=== PATIENT | male | born 1955 | race Caucasian/White ===

== ENCOUNTER 2018-11-18 13:45 | Inpatient (IN) | payer OTHER ==
[2018-11-18] MEDS: ONDANSETRON 4 MG INJ IV ×2 (13:53→14:00)
[2018-11-18] MEDS: morphine 2 MG INJ IV ×2 (13:53→14:00)
[2018-11-18 13:54] LABS: ADD MAN DIFF? NO
[2018-11-18] MEDS: SOD CHLORIDE 0.9% 1,000 ML IV ×2 (13:54→16:07)
[2018-11-18 13:57] LABS: BASOPHILS % 0.3 % (0.0-2.0); EOSINOPHILS % 0.3 % (0.0-7.0); HEMOGLOBIN 14.2 g/dl (14.0-18.0); LYMPHOCYTES % 18.4 % (15.0-51.0); MEAN CORPUSCULAR HEMOGLOBIN 30.2 pg (29.0-33.0); MEAN CORPUSCULAR VOLUME 91.5 fl (82.0-101.0); MEAN PLATELET VOLUME 10.8 fl (7.4-10.4); MONOCYTE # 0.7 10^3/ul (0.3-0.9); NEUTROPHIL # 8.1 10^3/ul (1.6-7.5); NEUTROPHILS % 74.5 % (39.0-77.0); PLATELET COUNT 147 10^3/UL (140-415); RED CELL DISTRIBUTION WIDTH 14.6 % (11.5-14.5)
[2018-11-18 13:57] LABS: WHITE BLOOD COUNT 10.9 10^3/ul (4.8-10.8)
[2018-11-18 14:15] LABS: ANION GAP 15 (5-13); BLOOD UREA NITROGEN 24 mg/dl (7-20); CARBON DIOXIDE 20 mmol/L (21-31); CHLORIDE 105 mmol/L (97-110); CREATININE 1.09 mg/dl (0.61-1.24); Estimated GFR > 60 mL/min (>60); GLUCOSE 217 mg/dl (70-220); POTASSIUM 4.3 mmol/L (3.5-5.1); SODIUM 140 mmol/L (135-144)
[2018-11-18 14:27] LABS: TROPONIN-I 0.044 ng/ml (0.000-0.120)
[2018-11-18] MEDS ORDERED: LIDOCAINE 1% (MDV) 20 ML INJ (14:29)
[2018-11-18] MEDS ORDERED: MIDAZOLAM 1 MG/ML 2 ML INJ (14:29)
[2018-11-18] MEDS ORDERED: HEPARIN 1000 UNITS/ML 10 ML INJ (14:29)
[2018-11-18] MEDS ORDERED: VERAPAMIL 5 MG INJ (14:29)
[2018-11-18] MEDS ORDERED: FENTAnyl 50 MCG/ML VIAL (14:29)
[2018-11-18] MEDS ORDERED: TICAGRELOR 90 MG TABLET (14:47)
[2018-11-18] MEDS ORDERED: niCARdipine 25 MG INJ (14:54)
[2018-11-18] MEDS ORDERED: BIVALIRUDIN 250MG /NS 50 ML 100 ML IVPB (15:08)
[2018-11-18] MEDS ORDERED: ONDANSETRON 4 MG INJ IV (15:30)
[2018-11-18] MEDS ORDERED: morphine 2 MG INJ IV (15:30)
[2018-11-18] MEDS ORDERED: ACETAMINOPHEN 325 MG TAB PO (15:30)
[2018-11-18] MEDS ORDERED: ZOLPIDEM 5 MG TAB PO (15:30)
[2018-11-18] MEDS ORDERED: AL HYDROX/MG HYDROX/SIMETH 30 ML CUP PO (15:30)
[2018-11-18] MEDS: BIVALIRUDIN 250MG /NS 50 ML 50 ML IVPB ×3 (16:15→18:50)
[2018-11-18] MEDS: ATORVASTATIN 80 MG TAB PO (20:40)
[2018-11-18] MEDS: METOPROLOL 25 MG TAB PO (20:41)
[2018-11-18] MEDS: LISINOPRIL 5 MG TAB PO (20:41)
[2018-11-18] MEDS: TICAGRELOR 90 MG TABLET PO (20:46)
[2018-11-18] MEDS ORDERED: METOPROLOL 25 MG TAB PO (21:00)
[2018-11-18 23:52] LABS: ANION GAP 9 (5-13); BLOOD UREA NITROGEN 17 mg/dl (7-20); CALCIUM 9.1 mg/dl (8.4-10.2); CARBON DIOXIDE 23 mmol/L (21-31); CHLORIDE 109 mmol/L (97-110); CREATININE 0.82 mg/dl (0.61-1.24); Estimated GFR > 60 mL/min (>60); GLUCOSE 145 mg/dl (70-220); MAGNESIUM 1.7 mg/dl (1.7-2.5); POTASSIUM 4.2 mmol/L (3.5-5.1); SODIUM 141 mmol/L (135-144)
[2018-11-19] MEDS: MAGNESIUM SULFATE 3 GM in DEXTROSE 5% 100 ML IVPB (00:28)
[2018-11-19 05:18] LABS: ADD MAN DIFF? NO
[2018-11-19 05:29] LABS: BASOPHILS % 0.3 % (0.0-2.0); EOSINOPHILS % 0.2 % (0.0-7.0); HEMATOCRIT 39.9 % (42.0-52.0); HEMOGLOBIN 13.1 g/dl (14.0-18.0); LYMPHOCYTES % 29.8 % (15.0-51.0); MEAN CORPUSCULAR HEMOGLOBIN 30.1 pg (29.0-33.0); MEAN CORPUSCULAR HGB CONC 32.8 g/dl (32.0-37.0); MEAN CORPUSCULAR VOLUME 91.7 fl (82.0-101.0); MEAN PLATELET VOLUME 11.6 fl (7.4-10.4); MONOCYTE # 0.7 10^3/ul (0.3-0.9); MONOCYTES % 7.4 % (0.0-11.0); NEUTROPHIL # 6.2 10^3/ul (1.6-7.5); PLATELET COUNT 149 10^3/UL (140-415); RED BLOOD COUNT 4.35 10^6/ul (4.70-6.10); RED CELL DISTRIBUTION WIDTH 14.7 % (11.5-14.5)
[2018-11-19 05:29] LABS: WHITE BLOOD COUNT 9.9 10^3/ul (4.8-10.8)
[2018-11-19 05:33] LABS: HEMOGLOBIN A1C 6.5 % (0-5.9)
[2018-11-19 05:43] LABS: ANION GAP 10 (5-13); BLOOD UREA NITROGEN 16 mg/dl (7-20); CALCIUM 9.2 mg/dl (8.4-10.2); CARBON DIOXIDE 22 mmol/L (21-31); CHLORIDE 110 mmol/L (97-110); CHOL/HDL RATIO 4.5 RATIO; CHOLESTEROL 180 mg/dl (100-200); CREATININE 0.85 mg/dl (0.61-1.24); Estimated GFR > 60 mL/min (>60); GLUCOSE 149 mg/dl (70-220); HDL CHOLESTEROL 40 mg/dl (30-78); LDL CHOLESTEROL,CALCULATED 120 mg/dl; POTASSIUM 4.5 mmol/L (3.5-5.1); SODIUM 142 mmol/L (135-144); TRIGLYCERIDES 101 mg/dl (0-149)
[2018-11-19 06:23] LABS: CK INDEX 5.4; CREATINE KINASE 3135 IU/L (23-200)
[2018-11-19 06:25] LABS: MAGNESIUM 2.6 mg/dl (1.7-2.5)
[2018-11-19] MEDS: hydrALAzine 20 MG INJ IV (06:25)
[2018-11-19] MEDS: METOPROLOL 25 MG TAB PO (08:23)
[2018-11-19] MEDS: ASPIRIN (EC) 81 MG TAB PO (08:24)
[2018-11-19] MEDS: TICAGRELOR 90 MG TABLET PO ×2 (08:24→20:37)
[2018-11-19] MEDS: LISINOPRIL 5 MG TAB PO ×2 (08:26→20:36)
[2018-11-19 11:58] LABS: CREATINE KINASE 2432 IU/L (23-200)
[2018-11-19] MEDS: ATORVASTATIN 80 MG TAB PO (20:36)
[2018-11-19] MEDS ORDERED: LISINOPRIL 5 MG TAB PO (21:00)
[2018-11-20] MEDS: TICAGRELOR 90 MG TABLET PO (08:44)
[2018-11-20] MEDS: LISINOPRIL 5 MG TAB PO (08:45)
[2018-11-20] MEDS: ASPIRIN (EC) 81 MG TAB PO (08:45)
[2018-11-21] MEDS ORDERED: METOPROLOL (XL) 25 MG TAB PO (09:00)
[2018-11-21] MEDS ORDERED: LISINOPRIL 5 MG TAB PO (09:00)
== END 2018-11-20 16:50 | disposition home or self-care (01) | DRG 246 ==
LOC: E/R 13:45 → CCL 14:20 → SDS 15:19 → ICU 15:40 → CCL 15:43 → ICU 15:43
PROC: 027034Z Dilation of Coronary Artery, One Artery with Drug-eluting Intraluminal Device, Percutaneous Approach (ICD-10-PCS; principal; 2018-11-18 14:00)
PROC: 4A023N7 Measurement of Cardiac Sampling and Pressure, Left Heart, Percutaneous Approach (ICD-10-PCS; 2018-11-18 14:00)
PROC: B211YZZ Fluoroscopy of Multiple Coronary Arteries using Other Contrast (ICD-10-PCS; 2018-11-18 14:00)
DX: T82.897A Other specified complication of cardiac prosthetic devices, implants and grafts, initial encounter (principal); I21.09 ST elevation (STEMI) myocardial infarction involving other coronary artery of anterior wall; I47.2 Ventricular tachycardia; I42.9 Cardiomyopathy, unspecified; I10 Essential (primary) hypertension; I25.10 Atherosclerotic heart disease of native coronary artery without angina pectoris; E66.9 Obesity, unspecified; Z68.32 Body mass index [BMI] 32.0-32.9, adult; E78.5 Hyperlipidemia, unspecified
CPT/HCPCS: 36415; 71045; 80048; 80061; 82550; 82553; 83036; 83735; 84484; 85025; 87081; 93005; 93306; 93458; 96360; 96361; 99285-25